=== PATIENT | female | born 1985 | race Caucasian/White ===

== ENCOUNTER 2020-09-06 08:56 | Outpatient (CLI) | payer BC ==
--- NOTE | 2020-09-06 10:53 | ULT ---
ULTRASOUND GALLBLADDER RIGHT UPPER QUADRANT: Date: 09/06/2020 HISTORY: Epigastric pain. COMPARISON: None. FINDINGS: Real-time Connors scale and color evaluation of the right upper quadrant of the abdomen was performed. Visualized aorta, IVC, and pancreas are unremarkable. Hepatic echotexture is slightly increased. Liver measures 18.1 cm in length. Portal vein patent with antegrade flow. Common bile duct is normal at 3.0 mm. There is cholelithiasis with adenomyomatosis, especially within the fundus. Right kidney measures 10.2 x 4.1 x 4.5 cm, without mass, hydronephrosis, or abnormal calcifications. Sonographic Briggs's sign is negative. IMPRESSION: Cholelithiasis and gallbladder adenomyomatosis. Symptomatic cholelithiasis is likely. No evidence for acute cholecystitis. Surgical consultation advised. POS: [facility]
== END 2020-09-06 08:57 | disposition home or self-care (01) ==
LOC: BICULT 08:56
PROVIDERS: ATTEND Internal Medicine Gastroenterology
DX: R10.13 Epigastric pain (principal); K80.20 Calculus of gallbladder without cholecystitis without obstruction; K82.8 Other specified diseases of gallbladder
CPT/HCPCS: 76705